=== PATIENT | female | born 2000 | race Caucasian/White ===

== ENCOUNTER 2021-05-13 19:46 | Inpatient (IN) ==
[2021-05-13] MEDS ORDERED: miSOPROStoL 25 MCG TABLET VG PRN (20:44)
[2021-05-13] MEDS ORDERED: Metoclopramide 10 MG/2 ML VIAL IVP PRN (20:49)
[2021-05-13] MEDS ORDERED: Naloxone 0.4 MG/ML INJ IVP PRN (20:49)
[2021-05-13] MEDS ORDERED: Famotidine 20 MG/2 ML VIAL IVP PRN (20:49)
[2021-05-13 21:20] LABS: Basophils % 0.2 %; Eosinophils # 0.1 K/mcL (0.0-0.6); Hematocrit 38.1 % (35.3-44.9); Hemoglobin 12.3 g/dL (11.5-15.4); Immature Granulocytes % 0.5 % (0-4); Lymphocytes # 2.7 K/mcL (0.6-4.6); Lymphocytes % 21.9 %; Mean Corpuscular HGB Conc 32.3 g/dL (31.6-35.5); Mean Corpuscular Volume 92.9 fL (83.0-100.0); Mean Platelet Volume 9.9 fL (9.4-12.4); Monocytes # 0.7 K/mcL (0.0-1.3); Monocytes % 5.3 %; Neutrophils # 8.8 K/mcL (1.6-8.9); Platelet Count 262 K/mcL (140-400); Red Cell Distribution Width 14.2 % (11.5-14.5); Segmented Neutrophils % 71.1 %; White Blood Count 12.4 K/mcL (4.3-11.1)
[2021-05-13 21:29] LABS: Amphetamine Screen,Urine Negative ng/mL (Cutoff=1000); Barbiturate Screen,Urine Negative ng/mL (Cutoff=200); Benzodiazepines Screen,Urine Negative ng/mL (Cutoff=200); Cannabinoid Screen,Urine Negative ng/mL (Cutoff = 50); Cocaine Screen,Urine Negative ng/mL (Cutoff= 300); Opiate Screen,Urine Negative ng/mL (Cutoff=300); Phencyclidine Screen,Urine Negative ng/mL (Cutoff=25)
[2021-05-13] MEDS ORDERED: EPHEDrine 50 MG/ML VIAL IVP PRN (22:05)
[2021-05-13] MEDS ORDERED: Epidural Premix (fent/bupiv) 110 ML EP SCH (22:15)
[2021-05-14] MEDS ORDERED: miSOPROStoL 25 MCG TABLET PO PRN (00:54)
[2021-05-14] MEDS ORDERED: *HR* Nalbuphine 10 MG/ML AMPUL IV PRN (05:18)
[2021-05-14] MEDS ORDERED: Terbutaline 1 MG/ML VIAL SQ ONE (05:56)
[2021-05-14] MEDS ORDERED: Oxytocin 20 units/ LR 1000 mL 20 UNIT/1,000 ML BAG IVC ONE (08:58)
[2021-05-14] MEDS ORDERED: Oxytocin 20 units/ LR 1000 mL 20 UNIT/1,000 ML BAG IVC SCH (09:00)
[2021-05-14] MEDS ORDERED: *HR* FentaNYL (PF) 100 MCG/2 ML VIAL EP ONE (11:06)
[2021-05-14] MEDS ORDERED: Ropivacaine/PF 0.2% 20 ML VIAL EP ONE (11:06)
[2021-05-14] MEDS ORDERED: *HR* FentaNYL (PF) 100 MCG/2 ML VIAL ONE ×2 (12:35→22:14)
[2021-05-14] MEDS ORDERED: Ropivacaine/PF 0.2% 20 ML VIAL ONE (12:35)
[2021-05-14] MEDS ORDERED: Ondansetron 4 MG/2 ML VIAL ONE (13:41)
[2021-05-14] MEDS ORDERED: Ondansetron 4 MG/2 ML VIAL IVP PRN (13:43)
[2021-05-14] MEDS: Ringers Solution, Lactated 1,000 ML IVC SCH (13:50)
[2021-05-15] MEDS ORDERED: *HR* FentaNYL (PF) 100 MCG/2 ML VIAL ONE ×6 (02:16→13:33)
[2021-05-15] MEDS ORDERED: *HR* Ropivacaine/PF 0.5% 20 ML VIAL ONE ×2 (04:18→06:49)
[2021-05-15] MEDS ORDERED: Lidocaine -MPF 2% 5 ML VIAL ONE (06:49)
[2021-05-15] MEDS: Ringers Solution, Lactated 1,000 ML IVC SCH (07:07)
[2021-05-15] MEDS ORDERED: Lidocaine/EPI 1:200k 2% PF 20 ML VIAL ONE (08:11)
[2021-05-15] MEDS ORDERED: Acetaminophen 325 MG TABLET PO ONE (08:22)
[2021-05-15] MEDS ORDERED: Ampicillin 2,000 MG in 0.9 % Sodium Chloride Mini Bag 100 ML IVPB ONE ×2 (08:23→08:45)
[2021-05-15] MEDS ORDERED: Gentamicin 370 MG in 0.9 % Sodium Chloride 100 ML IVPB ONE ×2 (08:35→08:44)
[2021-05-15] MEDS ORDERED: Ropivacaine/PF 0.2% 20 ML VIAL ONE (10:31)
[2021-05-15] MEDS ORDERED: Lidocaine 1% 20 ML MDV ONE (13:20)
[2021-05-15] MEDS ORDERED: Lanolin 7 G OINT...G. TP PRN (14:53)
[2021-05-15] MEDS ORDERED: Ampicillin 1,000 MG in 0.9 % Sodium Chloride Mini Bag 100 ML IVPB SCH ×2 (14:53→17:00)
[2021-05-15] MEDS ORDERED: Measles/Mumps/Rubella Vacc 0.5 ML VIAL SQ PRN (14:53)
[2021-05-15] MEDS ORDERED: Oxytocin 20 units/ LR 1000 mL 20 UNIT/1,000 ML BAG IVC SCH (14:53)
[2021-05-15] MEDS ORDERED: Benzocaine/Menthol 56 GM AEROSOL SPRAY TP PRN (14:53)
[2021-05-15] MEDS: Ibuprofen 600 MG TABLET PO PRN (16:43)
[2021-05-15] MEDS: Ampicillin 1,000 MG in 0.9 % Sodium Chloride Mini Bag 100 ML IVPB SCH (18:03)
[2021-05-15] MEDS: Acetaminophen 325 MG TABLET PO PRN (20:34)
[2021-05-16] MEDS: Ampicillin 1,000 MG in 0.9 % Sodium Chloride Mini Bag 100 ML IVPB SCH ×3 (00:12→12:45)
[2021-05-16] MEDS: Ibuprofen 600 MG TABLET PO PRN ×3 (04:31→22:49)
[2021-05-16] MEDS: Acetaminophen 325 MG TABLET PO PRN ×3 (06:17→22:49)
[2021-05-16] MEDS: Prenatal Vit/FA 1 EACH TABLET PO SCH (08:47)
[2021-05-17 08:13] VITALS: BP 105/69
[2021-05-17] MEDS: Prenatal Vit/FA 1 EACH TABLET PO SCH (09:58)
[2021-05-17 10:53] LABS: Basophils % 0.2 %; Eosinophils # 0.5 K/mcL (0.0-0.6); Eosinophils % 2.7 %; Hematocrit 32.3 % (35.3-44.9); Immature Granulocytes % 0.7 % (0-4); Lymphocytes # 2.5 K/mcL (0.6-4.6); Lymphocytes % 14.6 %; Mean Corpuscular HGB Conc 32.5 g/dL (31.6-35.5); Mean Corpuscular Hemoglobin 30.5 pg (28.0-33.3); Mean Corpuscular Volume 93.9 fL (83.0-100.0); Mean Platelet Volume 9.6 fL (9.4-12.4); Monocytes # 0.8 K/mcL (0.0-1.3); Neutrophils # 12.9 K/mcL (1.6-8.9); Platelet Count 295 K/mcL (140-400); Red Blood Count 3.44 M/mcL (3.82-4.97); Red Cell Distribution Width 14.5 % (11.5-14.5); Segmented Neutrophils % 76.8 %; White Blood Count 16.9 K/mcL (4.3-11.1)
[2021-05-17 10:54] LABS: Hemoglobin 10.5 g/dL (11.5-15.4)
[2021-05-17] MEDS: Ibuprofen 600 MG TABLET PO PRN (12:39)
== END 2021-05-17 15:20 | disposition home or self-care (01) | DRG 805 ==
LOC: 1NENULAB 19:46 → 1NENUOBS 05-15 16:13
PROVIDERS: ADMIT Obstetrics & Gynecology; ATTEND Obstetrics & Gynecology